=== PATIENT | female | born 1960 ===

== ENCOUNTER 2025-02-16 08:53 | Observation (INO) ==
--- NOTE | 2025-01-19 10:51 | PAT Medication Instructions ---
Medication Instructions Date of Service January 19, 2025 Home Medications carvedilol phosphate 80 mg capsule,[id number] multiphase 80 mg PO QAM diclofenac sodium 75 mg tablet,delayed release 75 mg PO BID furosemide 20 mg tablet 20 mg PO QAM levothyroxine 137 mcg capsule 137 mcg PO QAM lisinopril 30 mg tablet 30 mg PO QAM multivitamin (Daily Multi-Vitamin tablet) 1 tab PO DAILY rosuvastatin 40 mg tablet 40 mg PO QPM tramadol 50 mg tablet 50 mg PO BID PRN prn cetirizine 10 mg tablet 10 mg PO BID coenzyme Q10 200 mg capsule (Co Q-10) 600 mg PO HS tirzepatide 10 mg/0.5 mL subcutaneous pen injector 10 mg subcut WK ASK your surgeon for instructions diclofenac sodium 75 mg tablet,delayed release 75 mg PO BID STOP taking 2 weeks before surgery coenzyme Q10 200 mg capsule (Co Q-10) 600 mg PO HS STOP taking at least 7 days before surgery tirzepatide 10 mg/0.5 mL subcutaneous pen injector 10 mg subcut WK DO NOT take the morning of surgery furosemide 20 mg tablet 20 mg PO QAM lisinopril 30 mg tablet 30 mg PO QAM multivitamin (Daily Multi-Vitamin tablet) 1 tab PO DAILY cetirizine 10 mg tablet 10 mg PO BID Take morning of surgery With a small sip of water, OTHERWISE NOTHING TO EAT OR DRINK AFTER MIDNIGHT: carvedilol phosphate 80 mg capsule,[id number] multiphase 80 mg PO QAM levothyroxine 137 mcg capsule 137 mcg PO QAM tramadol 50 mg tablet 50 mg PO BID PRN (if needed) Take evening before surgery rosuvastatin 40 mg tablet 40 mg PO QPM tramadol 50 mg tablet 50 mg PO BID PRN prn (if needed) cetirizine 10 mg tablet 10 mg PO BID Other Notes If you have any questions please call us at [phone] or [phone] or [phone] or [phone]
--- NOTE | 2025-01-28 11:29 | Anesthesiology Consultation ---
Date of Service January 28, 2025 Assessment & Plan (1) Encounter for pre-operative examination: - tirzepatide instructions: Patient informed at PAT visit to stop 7 days prior to surgery- voiced understanding. - Outpatient joint assessment: Patient is currently scheduled for inpatient pathway. If re-evaluated and patient/surgeon requests outpatient pathway, patient is an acceptable candidate for outpatient joint program from anesthesia standpoint pending surgeon's office assessment of pt motivation/suppor t/completion of same day joint program preop requirements. Chart Review Chart Review: Acceptable Risk for Surgery and Patient seen in Pre Admission Testing Teaching & Discussion Pre-Anesthesia Teaching/Discussion Notes: Instructed NPO after midnight before surgery, except medications with 15 cc of water. Medication instructions provided according to the [facility] guidelines. History Surgery Operation Date: 02/16/25 10:40 Proposed Procedures p Left Total Knee Arthroplasty - Harpreet Shah MD Height/Weight Height: 5 ft 6 in Weight: 101 kg Allergies Allergy/AdvReac Type Severity Reaction Status Date / Time fire ant Allergy Severe Anaphylaxis Verified 01/27/25 17:19 gluten Allergy Intermediate Joint Pain Verified 01/27/25 17:19 pepito Allergy Severe Anaphylaxis Uncoded 01/27/25 17:19 Medications Home Medications Medication Instructions Recorded Confirmed Last Taken furosemide 20 mg tablet 20 mg PO QAM 01/11/25 01/27/25 Unknown lisinopril 30 mg tablet 30 mg PO QAM 01/11/25 01/27/25 Unknown multivitamin (Daily Multi-Vitamin 1 tab PO DAILY 01/11/25 01/27/25 Unknown tablet) coenzyme Q10 200 mg capsule (Co 600 mg PO HS 01/18/25 01/27/25 Unknown Q-10) tirzepatide 10 mg/0.5 mL 10 mg subcut WK 01/18/25 01/27/25 Unknown subcutaneous pen injector carvedilol phosphate 80 mg 80 mg PO QAM #90 caps 01/27/25 01/27/25 Unknown capsule,[id number] multiphase diclofenac sodium 75 mg 75 mg PO BID #180 tabs 01/27/25 01/27/25 Unknown tablet,delayed release rosuvastatin 40 mg tablet 40 mg PO QPM #90 tabs 01/27/25 01/27/25 Unknown tramadol 50 mg tablet 50 mg PO BID PRN pain #60 tabs 01/27/25 01/27/25 Unknown levothyroxine 137 mcg tablet 137 mcg PO DAILY #90 tabs 01/28/25 Unknown Past Medical History Medical History (Updated 01/28/25 @ 11:35 by Neeru Tijerina PA-C) Prerna's disease stable per patient, follows with PCP History of anesthesia reaction nerve block for shoulder replacement affected her diaphram and she had difficulty breathing for one week, [facility] Hyperlipidemia Hypertension controlled, stable per pt Hypothyroidism Sleep apnea CPAP auto adjust Patient denies h/o stroke, seizures, heart attack, heart failure, DM, blood clots/DVTs or blood transfusions. Exercise / Class Metabolic Activity II 4-5 Yardwork/Stairs/Walk up hill (denies chest discomfort or shortness of breath walking up one flight of stairs) Past Surgical History Surgical History History of hysterectomy History of reverse total replacement of right shoulder joint Hx of fusion of cervical spine mild decreased ROM Past Anesthesia History No Family Hx of Anesthesia Complications and Other (nerve block for shoulder replacement affected her diaphram and she had difficulty breathing for one week, [facility]) History of PONV No Hx of PONV and No Hx of Motion Sickness Social History Smoking Status: Never smoker Do You Dip or Chew Tobacco: No Hx Alcohol Use: Yes alcohol intake frequency: holidays/special occasions only Hx Substance Use: No substance use type: does not use Review of Systems Patient denies chest pain, shortness of breath, dyspnea on exertion, reflux, fever, chills, cough, wheezing, or palpitations. Physical Exam Vital Signs Vitals BP 136/61 P 65 TEMP 98 SP02 97% on RA RESP 18 Physical Patient resting comfortably in chair in no acute distress, alert and oriented, responding appropriately throughout visit Mildly limited cervical extension range of motion without pain TMD 3.5 finger breadths Mallampati Score 3 Dentition: gold tooth left lower side; denies chipped or loose teeth, caps/crowns, implants or bridges Lungs: normal respiratory effort. Good air movement, clear throughout to auscultation, no adventitious breath sounds Cardiac: regular rate and rhythm, no murmurs noted Carotid arteries: negative bruit bilat Lab Results Anesthesia Preop Results Results Anesthesia Widget: WBC 6.20 K/ul (4.8-10.8) 01/28/25 Hgb 13.3 g/dL (12.0-16.0) 01/28/25 Hct 39.2 % (37.0-47.0) 01/28/25 Plt 228 K/uL (130-400) 01/28/25 Na 139 mmol/L (136-145) 01/28/25 K 4.8 mmol/L (3.5-5.1) 01/28/25 Cl 103 mmol/L (98-107) 01/28/25 CO2 32 mmol/L (21-32) 01/28/25 BUN 11 mg/dl (6-23) 01/28/25 Creat 0.80 mg/dl (0.6-1.2) 01/28/25 Glucose Level 89 mg/dl (70-99(Fasting)) 01/28/25 PT 10.4 Seconds (9.0-12.0) 01/28/25 PTT 31 Seconds (21-31) 01/28/25 INR 1.0 (0.9-1.1) 01/28/25 Blood Type A Positive 01/28/25 Antibody Screen NEGATIVE 01/28/25 Testing Electrocardiogram Date: 01/28/25 NSR, rate 70 bpm Chest X-Ray Date: 01/28/25 Cervical spinal fusion hardware. Reverse right shoulder arthroplasty. Degenerative changes of the spine and left shoulder. Cardiomediastinal and hilar silhouettes are within normal limits. No pneumothorax, pleural effusion, airspace consolidation or pulmonary edema. IMPRESSION: No acute process.
--- NOTE | 2025-02-08 18:09 | History & Physical Report ---
Date of Service February 08, 2025 Assessment & Plan (1) Arthritis of both knees: 64-year-old female with a history shoulder replacement as well as cervical spine surgery with advanced bilateral knee DJD left side greater than right. She has failed conservative measures. She has terrible knees. She would like to begin fixation. She does have this underlying dermatological situation which has been optimized. She sees a package liner and they do not think there is much more they can do for it. Plan: Orgran proceed with left total knee replacement. With her skin condition it does increase her risk of infection slightly. Will likely put some vancomycin in the cement. Due to her deformity will probably use a cemented tibial stem. The risks and benefits of the procedure were explained. Informed consent was obtained. She is plan on using aspirin for DVT prophylaxis. She will stay in the hospital overnight and that she is going to stay with her mom and her sister for recovery. (2) History of reverse total replacement of right shoulder joint: (3) Hx of fusion of cervical spine: (4) History of hysterectomy: (5) Hyperlipidemia: (6) Hypertension: (7) Prerna's disease: (8) Hypothyroidism: History of Present Illness Chief Complaint: . Bilateral knee pain discomfort left side greater than the right. Primary Care Provider: NO PCP . The patient is a 64-year-old female who presents with about a 10-year history of bilateral knee pain discomfort described to gotten worse over time. She recently moved to this area from the [facility] to live with her sister and her mom. 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 She has been through extensive conservative treatment occluding physical therapy, anti-inflammatories and injections which have become less successful over time. She did recently lose about 45 pounds taking an unspecified GLP-1 medicines. She has got an underlying skin condition which is managed by package liner. This has been optimized. Would like to have her knees fixed. Allergies Allergy/AdvReac Type Severity Reaction Status Date / Time fire ant Allergy Severe Anaphylaxis Verified 01/27/25 17:19 gluten Allergy Intermediate Joint Pain Verified 01/27/25 17:19 pepito Allergy Severe Anaphylaxis Uncoded 01/27/25 17:19 Home Medications Medication Instructions Recorded Confirmed Type furosemide 20 mg tablet 20 mg PO QAM 01/11/25 01/27/25 History lisinopril 30 mg tablet 30 mg PO QAM 01/11/25 01/27/25 History multivitamin (Daily Multi-Vitamin 1 tab PO DAILY 01/11/25 01/27/25 History tablet) coenzyme Q10 200 mg capsule (Co 600 mg PO HS 01/18/25 01/27/25 History Q-10) tirzepatide 10 mg/0.5 mL 10 mg subcut WK 01/18/25 01/27/25 History subcutaneous pen injector carvedilol phosphate 80 mg 80 mg PO QAM #90 caps 01/27/25 01/27/25 Rx capsule,[id number] multiphase diclofenac sodium 75 mg 75 mg PO BID #180 tabs 01/27/25 01/27/25 Rx tablet,delayed release rosuvastatin 40 mg tablet 40 mg PO QPM #90 tabs 01/27/25 01/27/25 Rx tramadol 50 mg tablet 50 mg PO BID PRN pain #60 tabs 01/27/25 01/27/25 Rx levothyroxine 137 mcg tablet 137 mcg PO DAILY #90 tabs 01/28/25 Rx Past Med/Surg History Problem List Encounter for pre-operative examination Arthritis of both knees Medical History Hypothyroidism History of anesthesia reaction nerve block for shoulder replacement affected her diaphram and she had difficulty breathing for one week, [facility] Prerna's disease stable per patient, follows with PCP Hyperlipidemia Hypertension controlled, stable per pt Sleep apnea CPAP auto adjust Surgical History History of hysterectomy History of reverse total replacement of right shoulder joint Hx of fusion of cervical spine mild decreased ROM Social History Smoking Status: Never smoker Second Hand Exposure: No; Do You Dip or Chew Tobacco: No; Hx Alcohol Use: Yes Hx Substance Use: No Preferred Language: [place] Crane Oiler Required: No Beliefs That Will Affect Care: None Current Living Situation: Family Feels Safe at Home: Yes Assistive Devices: Glasses Review of Systems All systems reviewed & are unremarkable except as noted in HPI & below. Physical Exam . Physical examination reveals a pleasant middle-aged female but looks be in reasonably good health. Examination of both knees reveal patient walks a bit of a waddling gait. Examination of left knee reveals varus alignment to her knee. He has about a 10 degree flexion contracture and bends at about 110 degrees. Fairly stiff. No pain with hip motion. She is neurologically intact. Exam of the of the right knee reveals a similar varus deformity. Tender with medial joint line. Range of motion is about 10-1 20. No pain with hip motion. She is neurovascularly intact. Constitutional WD/WN, vitals as above Respiratory normal respiratory effort, lungs clear to auscultation Cardiovascular RRR, no murmur, no edema Gastrointestinal (Abdomen) normal bowel sounds, soft, nontender, no hepatosplenomegaly Results & Data Results & Data Laboratory Results . Diagnostic Findings . X-rays of the left knee were reviewed. She has advanced bilateral knee DJD. She has complete loss of medial joint space in both knees. On the left side she has got some bony destruction and tibiofemoral subluxation. Osteophytes in all 3 compartments. She got pretty similar but less severe disease on the right side. PG Care Time/CCT Total # of Minutes Spent Total Time Spent with Patient: Total time spent is greater than 50% in coordination of care (as documented) at patient's floor/unit and/or counseling patient: Coding Level of Care Code None Diagnoses Arthritis of both knees M17.0 History of reverse total replacement of right shoulder joint Z96.611 Hx of fusion of cervical spine Z98.1 History of hysterectomy Z90.710 Hyperlipidemia E78.5 Hypertension I10 Prerna's disease E06.3 Hypothyroidism E03.9
[~2025-02-16 08:53] MED LIST: BUPIVACAINE 0.5 % 5 MG/1 ML PF 10ML VIAL ONE; ROPIVACAINE 0.5% 5 MG/ML 30 ML VIAL ONE
--- NOTE | 2025-02-16 08:59 | History & Physical Bridge Note ---
Date of Service February 16, 2025 History & Physical Bridge Note I have examined the patient, reviewed the History & Physical and in the interval since the performance of the History & Physical I have noted the following changes of clinical significance: no changes noted
[2025-02-16] MEDS: CeleBREX 200 MG CAP PO SCH (09:28)
[2025-02-16] MEDS: ACETAMINOPHEN 500 MG TAB PO SCH ×2 (09:28→20:01)
[2025-02-16] MEDS: LR 60ML/HR IV SCH (09:29)
[2025-02-16] MEDS: METOCLOPRAMIDE HCL 10 MG TABLET PO SCH (09:29)
[2025-02-16] MEDS: FAMOTIDINE 20 MG TAB PO SCH (09:29)
[2025-02-16] MEDS: LR 500ML BOLUS, THEN 15ML/HR IV SCH (09:29)
[2025-02-16] MEDS: dexAMETHasone**PF** 10 MG/ML VIAL IV SCH (09:29)
[2025-02-16] MEDS ORDERED: ONDANSETRON INJ 2 MG/ML 2 ML VIAL IV PRN ×2 (10:06→14:57)
[2025-02-16] MEDS ORDERED: ATROPINE SULFATE 0.1 MG/ML 10ML SYR IV PRN (10:06)
[2025-02-16] MEDS ORDERED: PROPOFOL IV EMULSION 10 MG/ML 20 ML VIAL IV ONE ×3 (10:06→12:33)
[2025-02-16] MEDS ORDERED: MIDAZOLAM HCL 1 MG/ML 2ML VIAL ONE (10:06)
[2025-02-16] MEDS ORDERED: HYDROmorphone INJ 2 MG/ML SYR/VIAL IV PRN (10:06)
[2025-02-16] MEDS ORDERED: PROMETHAZINE HCL 6.25 MG in SODIUM CHLORIDE 0.9% 50 ML IV PRN (10:06)
[2025-02-16] MEDS: VANCOMYCIN HCL 1000MG/20ML VIAL ONE (11:44)
[2025-02-16] MEDS: ORTHO JOINT ANESTHETIC ONE (11:44)
[2025-02-16] MEDS: ROPIV 0.5% 246mg, Ketorolac 30mg, EPINEPHrine 0.5mg in NSS INFIL SCH (13:12)
--- NOTE | 2025-02-16 13:27 | Operative Report ---
PG Post Operative Report Pre & Post Diagnosis Operation Date: 02/16/25 10:40 Pre-Op Diagnosis: Left Knee Osteoarthritis Post-Op Diagnosis: Left Knee Osteoarthritis I identified the patient and participated in the time-out.: Yes Procedure Operation Date: 02/16/25 10:40 Actual Procedures p Left Total Knee Arthroplasty(Left) - Harpreet Shah MD Surgeon Harpreet Shah MD Durability Engineer Rock Ramsey PA-C Estimated Blood Loss 100 Findings Consistent with Post-Op Diagnosis Operative findings revealed extensive erosive arthritis and grade 4 [id number] disease in all 3 compartments. She has significant osteophytes in all 3 compartments. Large joint effusion. Specimens Left knee sent for pathology. Anesthesia Type Spinal MAC Complications none Disposition Accompanied Patient To Recovery: No Indications Patient is a 64-year-old female whose had a several year history of increasing bilateral knee pain discomfort left side greater than right. She. Attempted conservative treatment. She failed all measures. She became bed significantly debilitated by her knee pain discomfort stiffness. She elected proceed with left total knee arthroplasty. Patient does have an underlying skin condition which was medically optimized by the supervisor production managing preoperatively. Description of Procedure Operative implants consist of: 1 Biomet Vanguard size 67.5 left posterior stabilized femoral component. 2. Biomet size 71 tibial tray with a 12.5 mm x 80 mm stem extension. 3. 12 mm posterior stabilized polyethylene insert. 4. 31 x 8 all poly patella 5. 2.9 mm juggernaut anchor. The patient was taken to the operating, identified, placed on the operating table in the supine position. All contact areas were appropriately padded. IV antibiotics verified by the anesthesia team. A spinal anesthetic and adductor canal block had been provided in the holding area. A Lindsay catheter was placed in sterile fashion. A left thigh tourniquet was then placed. The left lower extremity was then prepped and draped in usual sterile fashion. The left leg was elevated exsanguinated with use of an Esmarch and Roopa placed at 300 mmHg. An anterior approach to the left knee was then performed through a longitudinal incision centered over the patella. Sharp dissection was carried through subcutaneous tissue down to the extensor mechanism. A medial parapatellar arthrotomy incision was made. Some subperiosteal dissection was carried out medially. The fat pad was dissected from the patella tendon. The lateral patellofemoral ligament was released. The patella subluxated laterally and the knee was flexed. Upon doing this there was a slight subperiosteal elevation of the patella tendon just on the most medial side. I placed a towel clip in this and connected to the bone to prevent any further stripping. The extensor mechanism was then then very carefully treated throughout the entire case. The knee was flexed. The osteophytes taken off the distal femur. The ACL and PCL were then released from distal femur and the tibia subluxate anteriorly. The external tibial LYMErix then placed on the anterior face the tibia and adjusted 16 mm medially. The proximal tibial cut was made essentially flush with the most deficient aspect of the posterior medial tibial plateau. The tibia was sized and sized to a size 71. Some osteophytes taken off medially. Attention then drawn the femur. The distal femur was entered with a sharp drill. Intramedullary canal was suction. Left 5 degree valgus cutting guide was placed. Distal femoral cutting block was pinned in place. Distal femoral cut was made to take an additional 3 mm of bone off distal femur. The femur was then sized to a size 67.5. The AP cutting block was pinned parallel to the epicondylar axis which was 5 degrees of external rotation. The anterior cut, anterior chamfer, posterior cut, posterior chamfer cuts were made. The box cutting guide was placed and just slight lateral and the box cut was made. The knee was flexed. The remnants of the medial and lateral menisci were excised. The osteophytes taken off the posterior aspect of femur. A trial femoral component was placed. The tibial tray was pinned in Janet external rotation and the drill and stem punch used great defect in proximal tibia for the tibial tray. I then hand reamed up to a size 15 for depth of about 10 cm to allow for a stemmed implant. We elected to place a cemented stem in order to maximize her tibial stability due to her severe deformity. The tibial tray was then assembled and placed and fit nicely. Then trialed the knee and the 12 mm insert fit most appropriately. Attention drawn to the patella. The patella was cleaned of all soft tissue. Patella thickness measured 22 mm in thickness was cut down to 14. Was sized to a size 31 patella. Lug holes were drilled for the 31 patella. Lateral osteophytes removed. Patella button was placed. Knee was taken through range of motion patella tracked nicely with no thumbs test. Attention jointer placed the permanent components. All trial components were removed. Bone plug was placed in distal femoral limit blood loss. Double batch Palacos G cement was mixed with an additional gram of vancomycin due to her multiple medical issues, skin condition, large size and severe deformity. A Biomet Vanguard size 67.5 left Po stabilized femoral component, a size 71 tibial tray with a cemented stem extension, 31 x 8 all poly patella, and a 12 mm pro stabilized polyethylene insert were implanted. The knee was brought out into full extension till cement hardened. A final cement check was then performed. After consideration I elected to placed a single juggernaut anchor on the medial aspect of the tibial tubercle just to secure the medial patella tendon down. There was no major stripping just a small portion maybe the most medial aspect. This was placed and the patella tendon was sutured medially. The tourniquet was then let down for final tourniquet time of 70 minutes. Hemostasis surges electrocautery. The extensor Mech was then closed with combination 1 PDS suture #0 Vicryl suture in a ivaddl-sh-vawaj fashion. The extensor Meclomen checked found to be intact. Subcutaneous tissue then closed with 2 Dexon suture in a buried interrupted fashion skin was closed skin sri. Leg was then cleaned and dried and a sterile dressing with Xeroform, 4 fours, sterile cast padding, Kristian bandage were applied. Patient then transferred to the recovery room in stable condition. Patient tolerated the procedure well and there were no complications. Rock Ramsey, my physician facilities assistant, was present for the entire procedure. His assistance was essential and required for appropriate patient positioning, prepping and draping, surgical exposure, performing the technical details of the operation, placement the implants, closure of the wound, and placement of the sterile bandage. I attest to the content of the Intraoperative Record and any orders documented therein. Any exceptions are noted below.
--- NOTE | 2025-02-16 13:47 | XRay Report ---
XR knee LT 1 or 2V routine CLINICAL HISTORY: Postoperative evaluation. COMPARISON: Left knee radiographs January 11, 2025. FINDINGS: Alignment of the total left knee arthroplasty is anatomic. No periprosthetic fracture or u nexpected radiopaque foreign body. There are skin sri. IMPRESSION: Expected findings following total left knee arthroplasty. ACT 112: Negative or not required by law. Electronically signed by: Greg You M.D. 02/16/2025 1:45 PM
--- NOTE | 2025-02-16 14:49 | Anesthesiology Progress Note ---
Date of Service February 16, 2025 Anesthesia Post Procedure Vital Signs Vital Signs: Temp Pulse Resp BP Pulse Ox O2 Del Method 02/16/25 14:30 73 12 134/72 96 Room Air 02/16/25 14:15 83 17 104/87 96 Room Air 02/16/25 14:00 67 13 131/69 100 Room Air 02/16/25 13:45 69 7 L 134/75 98 Room Air 02/16/25 13:35 36.7 C 79 11 L 129/76 97 Room Air 02/16/25 13:26 36.1 C L 76 14 123/74 98 Room Air 02/16/25 09:04 36.9 C 80 20 163/90 H 99 Room Air Transfer of Care Handoff Completed per policy Notes Mental Status: alert / awake / arousable and participated in evaluation Patient Amnestic to Procedure: Yes Nausea / Vomiting: adequately controlled Pain: adequately controlled Airway Patency, RR, SpO2: stable & adequate BP & HR: stable & adequate Hydration State: stable & adequate Neuraxial Anesthesia: was administered and sensory block is resolving Anesthetic Complications: no major complications apparent and Pt Satisfied with anesthetic care
[2025-02-16] MEDS ORDERED: METOCLOPRAMIDE HCL INJ 5 MG/ML 2 ML VIAL IV PRN (14:57)
[2025-02-16] MEDS ORDERED: NALOXONE HCL 0.4 MG/1 ML VIAL/CARP IV PRN (14:57)
[2025-02-16] MEDS ORDERED: ALUMINUM/MAGNESIUM SUSP 30 ML UDC PO PRN (14:57)
[2025-02-16] MEDS ORDERED: HYDROmorphone INJ 0.5 MG/0.5 ML SYR IV PRN (14:57)
[2025-02-16] MEDS ORDERED: MAGNESIUM HYDROXIDE SUSP 30 ML UDC PO PRN (14:57)
[2025-02-16] MEDS: SODIUM CHLORIDE 0.9% 1,000 ML IV SCH (15:17)
[2025-02-16] MEDS: KETOROLAC 30 MG/ML VIAL IV SCH (15:18)
[2025-02-16] MEDS: ASCORBIC ACID 500 MG TAB PO SCH (16:52)
[2025-02-16] MEDS: ASPIRIN 81 MG ECTAB PO SCH (20:03)
[2025-02-16] MEDS: ROSUVASTATIN CALCIUM 20 MG TAB PO SCH (20:03)
[2025-02-16] MEDS: DOCUSATE SODIUM 100 MG CAP PO SCH (20:11)
[2025-02-16] MEDS: SENNA 8.6 MG TAB PO SCH (20:11)
[2025-02-16] MEDS: TRANEXAMIC ACID / 0.7% NACL 1,000 MG/100 ML BAG IV SCH (20:22)
[2025-02-16] MEDS ORDERED: SENNA 8.6 MG TAB PO SCH (21:00)
[2025-02-16 23:23] VITALS: O2SAT 94
[2025-02-17 03:17] VITALS: RESP 16
[2025-02-17] MEDS: LEVOTHYROXINE SODIUM 137 MCG TABLET PO SCH (06:10)
[2025-02-17 06:44] LABS: Hematocrit (blood only) 34.3 % (37.0-47.0); Hemoglobin 11.8 g/dL (12.0-16.0); Mean Corpuscular Hemoglobin 30.2 pg (25.0-34.0); Mean Corpuscular Volume 87.7 fL (80.0-100.0); Platelet Count 247 K/uL (130-400); RDW Standard Deviation 38.2 fL (36.4-46.3); Red Blood Count 3.91 M/uL (4.20-5.40); White Blood Count 12.05 K/ul (4.8-10.8)
[2025-02-17 07:09] VITALS: BP 133/79; PULSE 102; TEMP 98.2
[2025-02-17 07:45] LABS: Anion Gap 7.0 (3-11); Blood Urea Nitrogen 17.0 mg/dl (6-23); Calcium 8.2 mg/dl (8.6-10.3); Carbon Dioxide 25.0 mmol/L (21-32); Chloride 107.0 mmol/L (98-107); Creatinine Clr Calc Pharmacy 90.1 ml/min; Glucose 149.0 mg/dl (70-99(Fasting)); Potassium 4.3 mmol/L (3.5-5.1); Sodium 139.0 mmol/L (136-145)
--- NOTE | 2025-02-17 08:01 | Orthopedic Progress Note ---
Date of Service February 17, 2025 Assessment & Plan (1) Status post total left knee replacement: * Continue Current Treatment * Disposition: home * Daily treatment: Physical Therapy/ Occupational Therapy per protocol * Weight bearing status: WBAT * Continue to monitor for ABLA * Pain control * DVT prophylaxis, ASA * Office/hospital f/u 2 weeks for progress check and staple/suture removal * Plan for discharge today pending PT/OT clearance Subjective . Active Problems: S/p left TKA POD 1 64 y/o female s/p left TKA. Doing well overall, pain managed and improved function. Denies fever/chills, chest pain/SOB, nausea/vomiting. Otherwise no complaints. Review of Systems All systems reviewed & are unremarkable except as noted in HPI & below. Physical Exam . * General: Alert and oriented, no acute distress * Constitutional: well-developed, well-nourished. * Respiratory: Normal respiratory effort, no distress * Gastrointestinal: No tenderness to palpation, no rigidity or guarding. * Skin: No rash or lesion. * Neurologic: Grossly normal * Musculoskeletal: left knee surgical dressing 90, not removed for exam. Otherwise no obvious deformity or overlying skin changes RLE. Diffuse TTP distal thigh and knee region. Otherwise no specific tenderness of proximal thigh, lower leg, foot/ankle. AROM knee flexion [] degrees. AROM foot/ankle intact. Sensation intact plantar/dorsal foot. Brisk capillary refill. Results & Data Results & Data Laboratory Results . Diagnostic Findings . Knee X-Ray 02/16/25 13:23 XR knee LT 1 or 2V routine CLINICAL HISTORY: Postoperative evaluation. COMPARISON: Left knee radiographs January 11, 2025. FINDINGS: Alignment of the total left knee arthroplasty is anatomic. No periprosthetic fracture or unexpected radiopaque foreign body. There are skin sri. IMPRESSION: Expected findings following total left knee arthroplasty. ACT 112: Negative or not required by law. Electronically signed by: Greg You M.D. 02/16/2025 1:45 PM PG Care Time/CCT Total # of Minutes Spent Total Time Spent with Patient: Total time spent is greater than 50% in coordination of care (as documented) at patient's floor/unit and/or counseling patient: Coding Level of Care Code 33121 Post Operative Follow-Up Diagnoses Status post total left knee replacement Z96.652
[2025-02-17] MEDS: dexAMETHasone 10 MG in SYRINGE 0 ML IV SCH (08:13)
[2025-02-17] MEDS: MULTIVITAMIN TAB PO SCH (08:13)
[2025-02-17] MEDS: FUROSEMIDE 20 MG TAB PO SCH (08:13)
== END 2025-02-17 11:28 | disposition home health service (06) ==
LOC: 3E 08:53 → ASU 08:53